=== PATIENT | female | born 1960 | race Caucasian/White ===

== ENCOUNTER → 2017-06-30 | Outpatient (CLI) | payer OTHER ==
--- NOTE | 2017-06-30 13:34 | RADIOLOGY IMAGING REPORT ---
FACILITY: [facility] - [place] PATIENT NAME: Meme Bo : 1960 MR: [id number] V: [id number] EXAM DATE: ORDERING PHYSICIAN: ALLISON HERNDON TECHNOLOGIST: Location: [facility] Patient: Meme Bo : 1960 Visit/Account:[id number] Date of Sevice: 06/30/2017 Technique: FOOT 2 VIEW BILATERAL HISTORY: Bilateral foot pain Comparison studies: None FINDINGS: Left foot: There is no acute fracture. Noted is hallux valgus. Mild dorsal midfoot osteophytosis is present. There are also degenerative changes at the first MTP joint. Soft tissues are unremarkable . Right foot: There is no acute fracture. Noted is hallux valgus. Degenerative changes are noted at th e first MTP joint. Soft tissues are unremarkable. IMPRESSION: 1. Degenerative changes as described above. Report Dictated By: Luis Miguel Patino DO at 06/30/2017 1:26 PM Report E-Signed By: Luis Miguel Patino DO at 06/30/2017 1:31 PM WSN:[email or web address]
--- NOTE | 2017-06-30 13:41 | RADIOLOGY IMAGING REPORT ---
FACILITY: [facility] - [place] PATIENT NAME: Meme Bo : 1960 MR: [id number] V: [id number] EXAM DATE: ORDERING PHYSICIAN: ALLISON HERNDON TECHNOLOGIST: Location: [facility] [place] Patient: Meme Bo : 1960 Visit/Account:[id number] Date of Sevice: 06/30/2017 Technique: KUB SINGLE VIEW ABDOMEN HISTORY: Abdominal discomfort, constipation Comparison studies: None FINDINGS: Surgical clips overlie the right upper left lower quadrants. No evidence of organomegaly. Moderate stool volume is seen throughout the colon. IMPRESSION: 1. Moderate stool volume throughout the colon. Report Dictated By: Luis Miguel Patino DO at 06/30/2017 1:34 PM Report E-Signed By: Luis Miguel Patino DO at 06/30/2017 1:35 PM WSN:[email or web address]
== END ==
LOC: RAD 12:29
PROVIDERS: ATTEND Family Medicine
DX: M19.072 Primary osteoarthritis, left ankle and foot (principal); M19.071 Primary osteoarthritis, right ankle and foot; M20.12 Hallux valgus (acquired), left foot; M20.11 Hallux valgus (acquired), right foot
CPT/HCPCS: 74018

== ENCOUNTER → 2017-07-24 | Day surgery (SDC) | payer OTHER ==
[~2017-07-24] VITALS: Ht 162.6 cm; Wt 78.9 kg
[~2017-07-24] MED LIST: ESTR-33 PO; LEVO-85 PO; LIDOCAINE MPF 1% 5 ML VIAL ONE; LIDOCAINE/SOD BICARB 8.4% SYR ID ONE; METR-1 PO; NORMOSOL R SOLN(*) 1000 ML BAG 1,000 ML IV PRN; PROPOFOL EMUL(*) 10MG/ML 20 ML 60 ML ONE
--- NOTE | 2017-07-24 07:27 | Short(Outpt) Discharge Summary ---
Discharge Summary Reason for Hosp/Final Diag: (1) Change in bowel habits Hospital Course & Plan: diverticulitis at 20 cm and diverticulosis Departure Discharge to: Home Discharge Instructions Home Meds Active Scripts Levofloxacin 500 Mg Tab (LEVAQUIN 500 MG TAB) 500 Mg Tablet, 500 MG PO QDAY, # 10 TAB Prov:APPLE DE LEON MD 07/24/17 Metronidazole (FLAGYL) 500 Mg Tablet, 500 MG PO TID, #30 TAB Prov:APPLE DE LENO MD 07/24/17 Reported Medications Estradiol (ESTRADIOL) 1 Mg Tablet, 1 MG PO DAILY 07/17/17 Diet: Regular Activity: As Tolerated Special Instructions: low residue diet for a week to see me in 2 weeks, call [phone] for apt APPLE DE LEON MD July 24, 2017 07:27
--- NOTE | 2017-07-24 07:27 | Post Operative Progress Note ---
Post Operative Progress Note Date: July 24, 2017 Time: 09:29 Surgeon: zeyad Anesthesia: dr landis Pre-Op Diagnosis: change in bowel habits Post-Op Diagnosis: diverticulitis at 20 cm and sigmoid divertiulosis Procedure(s): colonoscopy and biopsy APPLE DE LEON MD July 24, 2017 07:27
[2017-07-24 08:00] VITALS: BP 119/85
[2017-07-24 09:29] VITALS: BP 86/54
[2017-07-24 09:52] VITALS: BP 107/63
[2017-07-24 10:04] VITALS: BP 104/67
[2017-07-24 10:08] VITALS: BP 106/85
[2017-07-24 10:09] VITALS: BP 113/74
--- NOTE | 2017-07-24 14:48 | OPERATIVE REPORT 1 ---
EVENT DATE: July 24, 2017 SURGEON: Jasper Hanna MD ANESTHESIOLOGIST: Giorgi Mccracken MD ANESTHESIA: Sedation. PREOPERATIVE DIAGNOSIS Change in bowel habits, constipation. POSTOPERATIVE DIAGNOSES 1. Diverticulitis at 20 cm. 2. Sigmoid diverticulosis. PROCEDURE PERFORMED Colonoscopy with biopsies. DESCRIPTION OF PROCEDURE Patient was placed in the left lateral decubitus position and given intravenous sedation. Rectal exam was unremarkable. Flexible colonoscope was inserted. At 20 cm, she had an area that was stiff. I had difficulty to get the scope to go by, and there was reddened mucosa. With much persistence, we were able to slide by this area. We were then able to get over to the cecum. She had some solid material in the base of the cecum, made perfect visualization of that impossible, but we got a good view of the cecum, and it appeared to be normal. The right colon was normal. Transverse and descending colon were normal. She had diverticula in the sigmoid colon. At 20 cm, she had that tight area. We withdrew slowly across this. We took multiple biopsies from this area. I did not see any mucosal breakdown, nothing to suggest a tumor. It suggested more of diverticulitis, but the biopsies were taken. The rectum was normal. Scope was retroflexed. That appeared to be normal. [facility]
== END ==
LOC: OR 00:52
PROVIDERS: ATTEND Surgery
DX: K57.32 Diverticulitis of large intestine without perforation or abscess without bleeding (principal); K57.30 Diverticulosis of large intestine without perforation or abscess without bleeding
CPT/HCPCS: 00811; 45380; 88305; J2001; J2704

== ENCOUNTER → 2017-09-04 | Outpatient (CLI) | payer OTHER ==
[~2017-09-04] MED LIST changes: +FLUC200T56 PO; +IOPAMIDOL 76% 100 ML INFUS BTL 100 ML ONE; -LIDOCAINE MPF 1% 5 ML VIAL ONE; -LIDOCAINE/SOD BICARB 8.4% SYR ID ONE; +METR-160 PO; -NORMOSOL R SOLN(*) 1000 ML BAG 1,000 ML IV PRN; -PROPOFOL EMUL(*) 10MG/ML 20 ML 60 ML ONE; +SULF-198 PO
--- NOTE | 2017-09-04 09:48 | RADIOLOGY IMAGING REPORT ---
FACILITY: [facility] - [place] PATIENT NAME: Meme Bo : 1960 MR: [id number] V: [id number] EXAM DATE: ORDERING PHYSICIAN: SG THOMSON TECHNOLOGIST: Location: [facility] Patient: Meme Bo : 1960 Visit/Account:[id number] Date of Sevice: 09/04/2017 ABDOMEN/PELVIS W/WO CONTRAST Indication: Constipation Comparison: CT abdomen and pelvis 07/26/2013. Technique: CT lung bases to the pubic symphysis were obtained without and with IV contrast. 75 cc of Isovue 370 was used. One of the following dose optimization techniques was utilized in the performance of this exam: autom ated exposure control; adjustment of the mA and/or kV according to the patient's size; or use of an i terative reconstruction technique. Specific details can be referenced in the facility's radiology CT exam operational policy. Findings: Liver/gallbladder: Liver is normal. There are postoperative changes from a cholecystectomy. Spleen: Normal. Adrenals: Normal. Pancreas: Normal enhancement without evidence of mass. Kidneys/: Right and left kidney demonstrate normal enhancement without evidence of hydronephrosis or mass. Pelvic : Urinary bladder is normal. There are changes from a prior hysterectomy. GI: Diverticular changes are seen on the sigmoid colon, with adjacent fat stranding and wall thicken ing. There is no evidence of perforation or abscess. Vessels/spaces/nodes: Negative. Bones/soft tissues: There are no lytic or blastic bone lesions. Soft tissues are normal. Lung bases: Small nodules left lung base is seen. Largest measures 6 mm. Impression: 1. Acute sigmoid diverticulitis. No evidence of perforation or abscess. 2. Postoperative changes from a hysterectomy and cholecystectomy. 3. Several small nodules left lung base, largest measures 6 mm. If patient is high risk, such as hi story of smoking, CT chest without contrast is recommended. If patient is low risk, no follow-up is recommended. Report Dictated By: Ernesto Alejo at 09/04/2017 9:38 AM Report E-Signed By: Ernesto Alejo at 09/04/2017 9:44 AM WSN:[email or web address]
== END ==
LOC: CT 09-01 02:23
PROVIDERS: ATTEND Surgery
DX: Z90.49 Acquired absence of other specified parts of digestive tract (principal); Z90.79 Acquired absence of other genital organ(s); K57.30 Diverticulosis of large intestine without perforation or abscess without bleeding; R91.8 Other nonspecific abnormal finding of lung field
CPT/HCPCS: 74178; Q9967

== ENCOUNTER → 2017-10-03 | Outpatient (CLI) | payer OTHER ==
[~2017-10-03] MED LIST changes: +BARIUM SULFATE 1,900 ML ORAL.SUSP ONE; -IOPAMIDOL 76% 100 ML INFUS BTL 100 ML ONE
--- NOTE | 2017-10-03 14:41 | RADIOLOGY IMAGING REPORT ---
FACILITY: [facility] PATIENT NAME: Meme Bo : 1960 MR: [id number] V: [id number] EXAM DATE: ORDERING PHYSICIAN: SG THOMSON TECHNOLOGIST: Location: [facility] [place] Patient: Meme Bo : 1960 Visit/Account:[id number] Date of Sevice: 10/03/2017 Exam type: BARIUM ENEMA (BE) History: Diverticulitis Comparison: CT abdomen and pelvis September 04, 2017. Findings: Barium was instilled into the colon via the rectum in the usual retrograde fashion. Diverticulosis i s seen throughout the left-sided colon from the splenic flexure to the sigmoid colon and is most prom inent in the sigmoid region. Is a focal narrowing seen in the mid sigmoid colon upon initial filling of this area was again noted to be narrowed at the end of the examination. This could represent a f ocal area spasm due to the history of diverticulitis however an annular lesion cannot be entirely exc luded. Barium refluxed freely into the ileum. No intraluminal filling defects were identified. The fluoroscopy dose area product was 1905.21 micro-Styles per meter squared IMPRESSION: 1. Diverticulosis left-sided colon. There was a focal narrowing in the mid sigmoid colon seen upon initial filling with barium. This are a remains narrowed at the end of the examination. This could represent an area of spasm given the cl inical history of diverticulitis however an annular lesion cannot be entirely excluded. Report Dictated By: Georgina Morris MD at 10/03/2017 2:31 PM Report E-Signed By: Georgina Morris MD at 10/03/2017 2:36 PM WSN:[email or web address]
== END ==
LOC: RAD 09-30 00:48
PROVIDERS: ATTEND Surgery
DX: K57.32 Diverticulitis of large intestine without perforation or abscess without bleeding (principal)
CPT/HCPCS: 74270

== ENCOUNTER 2017-12-18 01:26 | Inpatient (IN) | payer OTHER ==
[2017-12-18] VITALS (7 sets, daily range): BP systolic 108–139; BP diastolic 63–93
[~2017-12-18] VITALS: Ht 162.6 cm; Wt 79.8 kg
[~2017-12-18 01:26] MED LIST changes: -BARIUM SULFATE 1,900 ML ORAL.SUSP ONE
[2017-12-18 09:22] LABS: PLATELET COUNT, AUTOMATED 334 K/uL (150-450)
[2017-12-18] MEDS ORDERED: LIDOCAINE/SOD BICARB 8.4% SYR ID ONE (09:50)
[2017-12-18] MEDS ORDERED: FAMOTIDINE 20 MG TAB PO ONE (09:50)
[2017-12-18] MEDS ORDERED: PREGABALIN 150 MG CAPSULE PO ONE (09:50)
[2017-12-18] MEDS ORDERED: ACETAMINOPHEN 500 MG TAB PO ONE (09:50)
[2017-12-18] MEDS ORDERED: LEVOFLOXACIN/D5W*500 MG/100 ML 100 ML IVPB ONE (09:50)
[2017-12-18] MEDS ORDERED: NORMOSOL R SOLN(*) 1000 ML BAG 1,000 ML IV PRN (09:50)
[2017-12-18] MEDS ORDERED: MIDAZOLAM 2 MG/2 ML VIAL IVP PRN (09:50)
[2017-12-18] MEDS ORDERED: metroNIDAZOLE* 500MG/100ML BAG 100 ML IVPB ONE ×2 (09:50→20:00)
[2017-12-18] MEDS ORDERED: fentaNYL CITR 250 MCG/5 ML AMP ONE (10:22)
[2017-12-18] MEDS ORDERED: DEXAMETHASONE SOD PHOS 10MG/ML ONE ×2 (10:24→13:00)
[2017-12-18] MEDS ORDERED: ONDANSETRON 4 MG/2 ML VIAL ONE ×2 (10:24→13:00)
[2017-12-18] MEDS ORDERED: LIDOCAINE MPF 1% 5 ML VIAL ONE (10:24)
[2017-12-18] MEDS ORDERED: KETAMINE HCL 200 MG/20 ML MDV ONE ×2 (10:26→14:45)
[2017-12-18] MEDS ORDERED: diphenhydrAMINE 50 MG/ML VIAL ONE (10:27)
[2017-12-18] MEDS ORDERED: ROCURONIUM BROM 10 MG/ML 10 ML ONE ×2 (11:02→13:00)
--- NOTE | 2017-12-18 11:04 | EKG ---
FACILITY: [facility] PATIENT NAME: KENYA STEPHENS : [id number] MR: [id number] V: [id number] EXAM DATE: ORDERING PHYSICIAN: JABIER ZIEGLER TECHNOLOGIST: Test Reason : Pre-op Blood Pressure : / mmHG Vent. Rate : 063 BPM Atrial Rate : 063 BPM P-R Int : 130 ms QRS Dur : 074 ms QT Int : 444 ms P-R-T Axes : 052 -14 024 degrees QTc Int : 454 ms Normal sinus rhythm with sinus arrhythmia Septal infarct , age undetermined Abnormal ECG No previous ECGs available Confirmed by Vince Jonas ([id number]) on 12/18/2017 7:18:49 PM Referred By: Confirmed By:Vince Lara
[2017-12-18] MEDS ORDERED: PROPOFOL EMUL(*) 10MG/ML 20 ML 20 ML ONE (11:48)
[2017-12-18] MEDS ORDERED: ROPIVACAINE 0.5% 20 ML VIAL ONE ×2 (12:28→19:54)
[2017-12-18] MEDS ORDERED: INDOCYANINE GREEN 25 MG VIAL IVP ONE (12:28)
[2017-12-18] MEDS ORDERED: SUGAMMADEX SOD 200 MG/2 ML SDV ONE ×2 (13:20→19:43)
[2017-12-18] MEDS ORDERED: HYDROmorphone HCL 2 MG/ML SDV ONE (14:29)
[2017-12-18] MEDS ORDERED: NS 0.9% 20 ML SDV 40 ML ONE (16:56)
[2017-12-18] MEDS ORDERED: fentaNYL CITR 100 MCG/2 ML AMP ONE ×3 (18:20→21:10)
[2017-12-18] MEDS ORDERED: ACETAMINOPHEN(*)1000 MG/100 ML 100 ML IVPB ONE (19:56)
[2017-12-18] MEDS ORDERED: FLUSH 10 ML SYR IVP PRN (20:45)
[2017-12-18] MEDS ORDERED: HYDROmorphone PCA 6 MG/30 ML IV PRN (20:45)
[2017-12-18] MEDS ORDERED: ONDANSETRON 4 MG/2 ML VIAL IVP PRN (20:45)
[2017-12-18] MEDS ORDERED: NALOXONE HCL 0.4 MG/ML VIAL IVP PRN (20:45)
--- NOTE | 2017-12-18 21:06 | Post Operative Progress Note ---
Post Operative Progress Note Date: Dec 18, 2017 Time: 20:49 Surgeon: Lisa Dictation number: [id number] Anesthesia: GETA by Dr. Fragoso Pre-Op Diagnosis: Sigmoid diverticulitis with stricture Post-Op Diagnosis: PHYLLIS Findings: C/W dx Procedure(s): Robotic sigmoid colectomy Robotic mobilization of splenic flexure Laparoscopic colorectal anastomosis Specimen Removed:(May be N/A): Sigmoid colon Anastomotic donuts Complications: None Fluids: 3500mL crystalloid 350mL UOP Estimated Blood Loss: 200mL Date OP Note Dictated: Dec 18, 2017 Time OP Note Dictated: 20:51 SG THOMSON MD Dec 18, 2017 21:06
[2017-12-18] MEDS ORDERED: CYAN500T38 PO (21:49)
[2017-12-18] MEDS: NS(*) 0.9% 1000 ML BAG 1,000 ML IV PRN (22:10)
--- NOTE | 2017-12-18 22:25 | OPERATIVE REPORT 1 ---
EVENT DATE: December 18, 2017 SURGEON: Adiel Gonzalez MD ANESTHESIOLOGIST: Guanaco Fragoso MD ANESTHESIA: General endotracheal anesthesia. PREOPERATIVE DIAGNOSIS Chronic sigmoid diverticulitis with stricture. POSTOPERATIVE DIAGNOSIS Chronic sigmoid diverticulitis with stricture. PROCEDURES PERFORMED 1. Robotic sigmoid colectomy. 2. Robotic mobilization of splenic flexure. 3. Laparoscopic colorectal anastomosis. COMPLICATIONS None. CONDITION Stable. BLOOD LOSS 200 mL URINE OUTPUT 350 mL INTRAVENOUS FLUIDS Crystalloid 3.5 L. SPECIMENS 1. Sigmoid colon. 2. Anastomotic donut. FINDINGS This patient had a very thickened portion of her sigmoid colon where the stricture was located. This was localized to the mid sigmoid, and I could find nice, healthy, soft colon that was normal proximally to this with a nice, healthy rectum distal to it. INDICATIONS This is a 57-year-old female who has been experiencing chronic recurring sigmoid diverticulitis and ultimately ended up with stricture in the mid sigmoid causing her to have problems with defecation. Dr. Hanna had performed a colonoscopy on her several months ago and noted the stricture, although he was able to pass the scope proximally to the stricture. He has since moved out of the area and referred her to me for further treatment regarding her stricture. We discussed colonoscopy with dilation versus no treatment versus sigmoid colectomy, and I explained the risks and benefits of each. After this discussion, she elected to proceed with sigmoid colectomy. DESCRIPTION OF PROCEDURE The patient was brought to the operating room and placed supine on the operating table. General endotracheal anesthesia was administered, and [facility] and [facility] Norman catheter was inserted. Her arms were tucked, and all pressure points were padded and protected. Her abdomen was prepped and draped in a sterile fashion. Timeout was completed, and then I injected the right subcostal skin with 0.5% ropivacaine plain. I made a 5 mm incision in this area, actually right through a previous scar from a previous port from a previous operation, and I used a Veress needle through this incision and entered the peritoneal cavity with no problems. I insufflated her abdomen to a pressure of 15 mmHg and then used a 5 mm optical trocar with the camera. I then focused and inserted this into the patient's abdomen without any problems. Gross inspection of the abdominal cavity revealed some adhesions down near her pelvis from her previous hysterectomy and cesareans. No other obvious pathology was noted. I then placed an 8 mm robotic port in the epigastric midline, an 8 mm port in the right mid abdomen, an 8 mm port a little bit lower in the right mid abdomen, and then a 12 mm robotic port in the right lower quadrant just medial to the anterior superior iliac spine. These were all placed in a line that was perpendicular to a line aimed at the sigmoid colon. After these were in place, the patient was placed in steep Trendelenburg, and the robot was brought in, docked, and targeted. Instruments were inserted. After this was completed, I scrubbed out and went to the console, and I mobilized the sigmoid colon from lateral to medial. There were some dense adhesions of the lateral sigmoid colon to the lateral pelvic sidewall. Through a combination of medial and lateral dissection, I was able to mobilize these and ultimately dissect it all the way down around the peritoneal reflection and then up along the lateral attachments of the descending colon and dividing the white line of Toldt. I did a combination of a medial to lateral and lateral to medial dissection to connect the dots behind the mesocolon. The left ureter was easily identified and preserved and could easily be seen peristalsing. Once I got behind the mesentery of the sigmoid colon, I dissected down to the rectum. Once I identified the upper rectum just beyond the peritoneal reflection, I cleaned this off circumferentially. Using the Endo LIZBETH stapler with a green load, I divided the rectum at this level. I then scrubbed back in and went to the patient. I anesthetized the skin and made a low transverse incision in a previous scar from her previous hysterectomy and . I dissected through the dermis and subcutaneous fat, identified the anterior fascia, and made a transverse incision in this. I then swept the muscles laterally without dividing them and then entered the peritoneal cavity. I placed a wound protector and then pulled the colon out through this. It was kind of tight, but I was able to divide the mesentery proximal to the obviously thickened area where the stricture was located. I then used a LIZBETH 75 mm stapler with a blue load and divided the colon at this point. I then dropped the divided colon back into the patient's abdomen and removed the specimen off the field. We then brought the robot in and redocked it, targeted it, and inserted the instruments. Before I went to the console, I opened up the specimen on the back table and noted the stricture and a very thickened area of colon around this from the chronic inflammation. I did not see any other abnormalities or evidence of cancer. The specimen was passed off the field, and I went to the console. I placed a staple line down by the pelvis, but it was way too short today and several centimeters away from the rectal stump to safely perform an anastomosis. I then continued dividing the mesocolon proximally and divided the BETITO with a vascular load, but I did not need to divide the IMV. I connected the medial to lateral dissection with the lateral to medial and the greater omentum from the transverse colon all the way from the mid transverse colon all the way to the splenic flexure and divided all of the surrounding attachment to the splenic flexure to the spleen and abdominal wall. Ultimately after this was done, I had great mobilization of the colon. I brought the staple line in, and it went right down into the pelvis right up against the rectal stump with no tension, and there was excess colon to spare. I scrubbed back in and went back to the low transverse incision. I pulled this colon out and cut off the staple line. I then used the EEA sizer and tried a 25 mm sizer which passed with no problems, a 29 mm sizer passed with no problems, and a 33 mm sizer would not pass without tearing the tissue. I then elected to use a 25 mm EEA stapler, and this was brought up onto the field. The anvil was removed from the stapler and placed in the colon. I used a 2-0 silk suture to make a pursestring around this colon to secure the EEA stapler in place. I then dropped the colon with the EEA stapler back into the patient's abdomen and sealed the incisions. I then used the sizer up into the rectum to identify the staple line and that it would pass up to the rectal stump without no problems, and it did. I then inserted the main portion of the EEA stapler up into the patient's rectum and engaged it at the staple line. I advanced the trocar until I could see the orange. I then used the laparoscopic anvil clamp, grasped the anvil, then engaged the trocar, and locked it into place. I then went back between the patient's legs and then pulled the anvil into the stapler until the stapler indicated the red line was in the green zone. I then fired the stapler, then opened the anvil a full turn, and then gently removed the stapler from the patient's rectum. I checked both donuts, and they both were complete. The rectal portion of the donut was very robust. Up the colonic portion was somewhat smaller, but still complete. I then stuck a proctoscope into the patient's rectum, and I visualized the staple line. It was complete all the way around, and there was no active bleeding, although there was a little bit of blood in this area. I then had my activity assistant fill the patient's pelvis with normal saline with the camera down there, and then I filled the rectum with gas through the proctoscope, and there was no bubbling. I then released the gas by opening up the proctoscope and removed the proctoscope from the patient's rectum. We then brought the robot back in, redocked it, targeted it, and inserted the instruments. I then went back to the console. We used an ICG injection again, which we had done actually after mobilizing the splenic flexure, but prior to putting the anvil in to confirm good blood flow all the way to the staple line, and there was. Now with the anastomosis, we did another dose of ICG, and the entire small bowel and colon all the way down to the anastomosis glowed, as well as the rectal stump. I suctioned out the pelvis and looked around the abdomen for any other abnormalities or problems, and there were none. We then removed all the robotic instruments and undocked the robot. I scrubbed in, went back to the bedside. I used a Leo-Grant suture passer, and after removing the 12 mm port, I placed a [id number] 0 Vicryl suture through the fascia of the right lower quadrant 12 mm port incision. I tied this down, and this was airtight at this point. We then desufflated the abdomen, removed all of the ports, removed the wound protector, and then closed the peritoneum in the low transverse wound with a running 3-0 Vicryl suture and then closed the anterior fascia with running #2 Prolene suture. We irrigated and dried this wound. I closed the subcutaneous tissue with running 3-0 Vicryl suture, and the skin was closed with interrupted 3-0 Vicryl deep dermal sutures and 4-0 Monocryl running subcuticular suture. Each of the port sites were closed with 4-0 Monocryl subcuticular sutures. The skin was cleaned and dried, and Steri-Strips were applied, followed by sterile surgical dressings. The patient was awakened, extubated in the operating room, and transported to the recovery room in stable condition having tolerated the procedure without any apparent problems. MATTI
[2017-12-19] VITALS (9 sets, daily range): BP systolic 92–110; BP diastolic 54–68; Ht 162.6 cm; Wt 79.8 kg
[2017-12-19] MEDS: ACETAMINOPHEN(*)1000 MG/100 ML 100 ML IVPB SCH ×4 (01:20→20:36)
[2017-12-19] MEDS: metroNIDAZOLE* 500MG/100ML BAG 100 ML IVPB SCH ×3 (03:39→19:35)
[2017-12-19 06:00] LABS: PLATELET COUNT, AUTOMATED 285 K/uL (150-450)
[2017-12-19] MEDS: NS(*) 0.9% 1000 ML BAG 1,000 ML IV PRN ×2 (06:59→17:59)
--- NOTE | 2017-12-19 07:36 | General Surgery Progress Note ---
Subjective Progress Notes Subjective No complaints this morning. Not much pain. No appetite. No nausea or bloating. No flatus yet. Physical Exam Vital Signs Date Time Temp Pulse Resp B/P (MAP) Pulse Ox O2 Delivery O2 Flow Rate FiO2 12/19/17 05:46 12 97 12/19/17 04:00 62 92/55 (67) Nasal Cannula 2.0 12/19/17 00:00 97.8 Intake and Output 12/19/17 07:00 Intake Total 3850 ml Output Total 1100 ml Balance 2750 ml Intake IV Total 3850 ml Output Urine Total 1100 ml General Appearance: Alert, Awake, No Acute Distress, Afebrile GI: Other (Soft, appropriate postop TTP, dressings C/D/I) Extremities: Warm, Perfused Result Diagram: 12/19/1752112/19/17521 Assessment and Plan Problems: (1) S/P colectomy Status: Acute Assessment & Plan: 12/19/17: POD#1 s/p robotic sigmoid colectomy. Doing well. Pain well controlled. Awaiting return of bowel function. Will start sips/chi ps, chewing gum, hard candy, popsickle diet today. Ambulate, IS, aggressive pulmonary hygiene. PT to work with her today to help her mobilize, transfer, etc. Remove Norman later today or tomorrow morning depending on mobility today. Stop levaquin and flagyl tomorrow. PPI for GI prophylaxis. Lovenox for VTE prophylaxis. Condition Stable. Time Spent: < 30 min Exam Sepsis Risk: No Definite Risk SG THOMSON MD Dec 19, 2017 07:36
[2017-12-19] MEDS: PANTOPRAZOLE SOD 40 MG IV VIAL IVP SCH (08:52)
[2017-12-19] MEDS ORDERED: LEVOFLOXACIN/D5W*500 MG/100 ML 100 ML IVPB SCH (13:00)
--- NOTE | 2017-12-19 16:43 | Antimicrobial Stewardship ---
Antimicrobial Stewardship Empiricly appropriate: Yes Comment Levofloxacin 500mg IV daily, Flagyl 500mg IV Q8H Appropriate dose for site: Yes Clinically stable/improving: Yes Comment S/P colectomy- post op prophylaxis IV to PO Opportunity: No Comment Pt still NPO, awaiting return of bowel function, will d/c antibiotics tomorrow Determine cumulative duration: Appropriate post op prophylaxis Comment 12/18/17: Pt s/p colectomy, on appropriate antibiotics for prophylaxis. Plan to stop antibiotics on 12/20/17. Analy Andres, PharmD, BCOP ANALY ANDRES Dec 19, 2017 16:43
[2017-12-19] MEDS: MELATONIN 3 MG TAB PO SCH (20:36)
[2017-12-20] MEDS: ACETAMINOPHEN(*)1000 MG/100 ML 100 ML IVPB SCH ×4 (02:42→19:31)
[2017-12-20 03:42] VITALS: BP 105/66
[2017-12-20] MEDS: metroNIDAZOLE* 500MG/100ML BAG 100 ML IVPB SCH (04:20)
[2017-12-20] MEDS: NS(*) 0.9% 1000 ML BAG 1,000 ML IV PRN (04:20)
[2017-12-20 05:27] VITALS: BP 201/85
[2017-12-20 06:44] LABS: PLATELET COUNT, AUTOMATED 255 K/uL (150-450)
[2017-12-20 07:43] VITALS: BP 122/72
[2017-12-20] MEDS: PANTOPRAZOLE SOD 40 MG IV VIAL IVP SCH (08:59)
[2017-12-20] MEDS: ENOXAPARIN 40 MG/0.4ML SYR SC SCH (09:00)
--- NOTE | 2017-12-20 09:28 | General Surgery Progress Note ---
Subjective Progress Notes Subjective Having a little more abdominal cramping this morning. Feels like the dilaudid is affecting her mind. Passing flatus. Passed a little blood per rectum this morning. Physical Exam Vital Signs Date Time Temp Pulse Resp B/P (MAP) Pulse Ox O2 Delivery O2 Flow Rate FiO2 12/20/17 07:43 98.3 74 18 122/72 (89) 90 Room Air 12/20/17 03:42 1.0 Intake and Output 12/20/17 07:00 Intake Total 2729 ml Output Total 1750 ml Balance 979 ml Intake Oral 0 ml IV Total 2729 ml Output Urine Total 1750 ml General Appearance: Alert, Awake, No Acute Distress, Afebrile GI: Other (Soft, appropriate postop TTP, incisions all look good without erythema or drainage.) Extremities: Warm, Perfused Result Diagram: 12/20/1752312/20/17523 Assessment and Plan Problems: (1) S/P colectomy Status: Acute Assessment & Plan: 12/19/17: POD#1 s/p robotic sigmoid colectomy. Doing well. Pain well controlled. Awaiting return of bowel function. Will start sips/chips, chewing gum, hard candy, popsickle diet today. Ambulate, IS, aggressive pulmonary hygiene. PT to work with her today to help her mobilize, transfer, etc. Remove Norman later today or tomorrow morning depending on mobility today. Stop levaquin and flagyl tomorrow. PPI for GI prophylaxis. Lovenox for VTE prophylaxis. 12/20/17: POD#2. Doing well. Passing flatus so will start clear diet but pt advised to go slow until cramps and appetite improves. Dressings removed. Pt may shower today. Ambulate, IS, aggressive pulmonary hygiene. Norman removed this morning. Will stop perioperative abx. PPI, lovenox for prophylaxis. Will start toradol to improve pain control. Condition Stable Time Spent: < 30 min Exam Sepsis Risk: No Definite Risk SG THOMSON MD Dec 20, 2017 09:28
[2017-12-20] MEDS: KCL/D1/2NS 20 MEQ 1000 ML 1,000 ML IV SCH (12:10)
[2017-12-20] MEDS: KETOROLAC 30 MG/ML VIAL IVP SCH ×3 (12:10→21:43)
[2017-12-20 12:15] VITALS: BP 125/81
[2017-12-20 13:56] VITALS: BP 104/72
[2017-12-20 19:30] VITALS: BP 102/72
[2017-12-20] MEDS: MELATONIN 3 MG TAB PO SCH (21:43)
[2017-12-21] MEDS: KCL/D1/2NS 20 MEQ 1000 ML 1,000 ML IV SCH (01:24)
[2017-12-21] MEDS: ACETAMINOPHEN(*)1000 MG/100 ML 100 ML IVPB SCH ×2 (01:24→09:11)
[2017-12-21 01:40] VITALS: BP 114/71
[2017-12-21] MEDS: KETOROLAC 30 MG/ML VIAL IVP SCH (03:28)
[2017-12-21 03:30] VITALS: BP 115/73
[2017-12-21 06:50] LABS: PLATELET COUNT, AUTOMATED 257 K/uL (150-450)
[2017-12-21 07:30] VITALS: BP 123/76
[2017-12-21] MEDS: PANTOPRAZOLE SOD 40 MG IV VIAL IVP SCH (09:11)
[2017-12-21] MEDS: ENOXAPARIN 40 MG/0.4ML SYR SC SCH (09:12)
[2017-12-21] MEDS ORDERED: KCL/D1/2NS 20 MEQ 1000 ML 1,000 ML IV SCH (09:23)
[2017-12-21] MEDS ORDERED: MORPHINE 2 MG/ML SYR IVP PRN (09:25)
[2017-12-21] MEDS ORDERED: ACETAMINOPHEN 325 MG TAB PO PRN (09:25)
--- NOTE | 2017-12-21 09:31 | General Surgery Progress Note ---
Subjective Progress Notes Subjective No complaints this morning. Passing lots of flatus. No BM yet. Abdominal discomfort she was having yesterday has resolved. Physical Exam Vital Signs Date Time Temp Pulse Resp B/P (MAP) Pulse Ox O2 Delivery O2 Flow Rate FiO2 12/21/17 07:57 95 Room Air 12/21/17 07:30 98.2 65 18 123/76 (92) 12/21/17 03:30 1.0 Intake and Output 12/21/17 06:59 Intake Total 1550 ml Output Total 150 ml Balance 1400 ml Intake Oral 550 ml IV Total 1000 ml Output Urine Total 150 ml # Voids 6 General Appearance: Alert, Awake, No Acute Distress, Afebrile GI: Soft and Non-Tender (Incisions are all healing well without erythema or drainage.) Extremities: Warm, Perfused Result Diagram: 12/21/1754712/21/17547 Assessment and Plan Problems: (1) S/P colectomy Status: Acute Assessment & Plan: 12/19/17: POD#1 s/p robotic sigmoid colectomy. Doing well. Pain well controlled. Awaiting return of bowel function. Will start sips/chips, chewing gum, hard candy, popsickle diet today. Ambulate, IS, aggressive pulmonary hygiene. PT to work with her today to help her mobilize, transfer, etc. Remove Norman later today or tomorrow morning depending on mobi lity today. Stop levaquin and flagyl tomorrow. PPI for GI prophylaxis. Lovenox for VTE prophylaxis. 12/20/17: POD#2. Doing well. Passing flatus so will start clear diet but pt advised to go slow until cramps and appetite improves. Dressings removed. Pt may shower today. Ambulate, IS, aggressive pulmonary hygiene. Norman removed this morning. Will stop perioperative abx. PPI, lovenox for prophylaxis. Will start toradol to improve pain control. 12/21/17: POD#3. Doing very good this morning. Passing increasing amounts of flatus. No N/V or bloating, tolerating clear diet. Will try regular diet and start converting medications to PO later today. Urinating without problems sinc e catheter removed. Possible d/c to home tomorrow if doing well and tolerating regular diet. Condition Stable. Time Spent: < 30 min Exam Sepsis Risk: No Definite Risk SG THOMSON MD Dec 21, 2017 09:31
[2017-12-21] MEDS: IBUPROFEN 600 MG TAB PO PRN (10:54)
[2017-12-21] MEDS: APAP/HYDROCODONE 325/5 TAB PO PRN ×2 (12:59→19:43)
[2017-12-21 20:40] VITALS: BP 110/86
[2017-12-21] MEDS: MELATONIN 3 MG TAB PO SCH (21:07)
[2017-12-22] MEDS: APAP/HYDROCODONE 325/5 TAB PO PRN ×2 (00:02→10:33)
[2017-12-22 00:05] VITALS: BP 118/74
[2017-12-22 07:16] VITALS: BP 127/84
[2017-12-22] MEDS ORDERED: IBUP600T22 PO (08:16)
[2017-12-22] MEDS ORDERED: LOR5/325 PO (08:16)
--- NOTE | 2017-12-22 08:23 | Short(Outpt) Discharge Summary ---
Discharge Summary Reason for Hosp/Final Diag: (1) S/P colectomy Status: Acute Hospital Course & Plan: 12/19/17: POD#1 s/p robotic sigmoid colectomy. Doing well. Pain well controlled. Awaiting return of bowel function. Will start sips/chips, chewing gum, hard candy, popsickle diet today. Ambulate, IS, aggressive pulmonary hygiene. PT to work with her today to help her mobilize, transfer, etc. Remove Norman later today or tomorrow morning depending on mobility today. Stop levaquin and flagyl tomorrow. PPI for GI prophylaxis. Lovenox for VTE prophylaxis. 12/20/17: POD#2. Doing well. Passing flatus so will start clear diet but pt advised to go slow until cramps and appetite improves. Dressings removed. Pt may shower today. Ambulate, IS, aggressive pulmonary hygiene. Norman removed this morning. Will stop perioperative abx. PPI, lovenox for prophylaxis. Will start toradol to improve pain control. 12/21/17: POD#3. Doing very good this morning. Passing increasing amounts of flatus. No N/V or bloating, tolerating clear diet. Will try regular diet and start converting medications to PO later today. Urinating without problems since catheter removed. Possible d/c to home tomorrow if doing well and tolerating regular diet. 12/22/17: POD#4. Doing well. Tolerating diet. Continues to pass a lot of flatus. No BM yet. Pt wishes to go home. Will d/c to home and I will see her back in the office later this week. Departure Discharge to: Home, Self Care Discharge Instructions Home Meds Active Scripts Ibuprofen (IBUPROFEN) 600 Mg Tablet, 1 TAB PO TID PRN for PAIN, #30 TAB 0 Refills Prov:SG THOMSON MD 12/22/17 Hydrocodone Bit/Acetaminophen (HYDROCODON-ACETAMINOPHEN 5-325) 1 Each Tablet, 1 TAB PO Q4H PRN for PAIN, #20 TAB 0 Refills Prov:SG THOMSON MD 12/22/17 Reported Medications Cyanocobalamin (Vitamin B-12) (VITAMIN B-12) 500 Mcg Tablet, 500 MCG PO DAILY 12/18/17 Estradiol (ESTRADIOL) 1 Mg Tablet, 1 TAB PO DAILY 07/17/17 Follow up Referrals: General Surgery - 12/26/17 @ Surgery, General with SG THOMSON MD You have a follow up appointment scheduled with Dr. Thomson on 12/26/17, at 3:00pm. Diet: Regular Activity: As Tolerated Special Instructions: You may shower as desired but don't immerse the incisions for 2 weeks. Leave the steristrips in place until they fall off on their own. Avoid any activities that involves straining or lifting more than 10 pounds until you're 6 weeks after surgery to allow the lower abdominal ( type) incision to heal without a future hernia. Make sure you're drinking plenty of water and even protien drinks throughout the day to stay hydrated, monitor your urine output and make sure you're urinating throughout the day and that your urine is light yellow. Eat a low fiber diet for the next week and if you're having regular bowel movements you can start incorporating more fiber-rich foods starting next week (December 29) but don't take any fiber supplements (metamucil, citrucel, benefiber, etc) until you're 30 days out from surgery. Please call my office or come in to the ER for evaluation if you develop increasing abdominal pain, florid diarrhea, nausea, vomiting, you stop passing gas from your rectum, fevers, chills, or your abdomen becomes increasingly bloated/distended. I will see you this next Friday at 3:00pm!! Happy Halloween!! SG THOMSON MD Dec 22, 2017 08:23
[2017-12-22] MEDS: IBUPROFEN 600 MG TAB PO PRN (09:04)
[2017-12-22] MEDS: ENOXAPARIN 40 MG/0.4ML SYR SC SCH (09:04)
== END 2017-12-22 10:40 | disposition home or self-care (01) | DRG 330 ==
LOC: OR 01:26 → MED 21:42
PROVIDERS: ADMIT Surgery; ATTEND Surgery
PROC: 0D1 Gastrointestinal System, Bypass (ICD-10-PCS; 2017-12-18)
PROC: 8E0W4CZ Robotic Assisted Procedure of Trunk Region, Percutaneous Endoscopic Approach (ICD-10-PCS; 2017-12-18)
PROC: 0DBN0ZZ Excision of Sigmoid Colon, Open Approach (ICD-10-PCS; principal; 2017-12-18 12:59)
DX: K57.32 Diverticulitis of large intestine without perforation or abscess without bleeding (principal); K56.699 Other intestinal obstruction unspecified as to partial versus complete obstruction; R19.5 Other fecal abnormalities; Z88.0 Allergy status to penicillin
CPT/HCPCS: 36415; 82310; 82374; 82435; 82565; 82947; 84132; 84295; 84520; 85025; 86850; 86900; 86901; 88305; 88307; 93005; C9113; J0131; J1100; J1170; J1200; J1650; J1885; J1956; J2001; J2250; J2405; J2704; J2795; J3010; J3480; J3490; J7030; J7050

== ENCOUNTER → 2018-07-08 | Outpatient (CLI) | payer OTHER ==
[2017-12-19 08:15] VITALS: BMI 30.2
[~2018-07-08] MED LIST changes: +CYAN500T38 PO; +IBUP600T22 PO; +LOR5/325 PO; -METR-160 PO; +METR500T15 PO
--- NOTE | 2018-07-08 14:47 | RADIOLOGY IMAGING REPORT ---
FACILITY: [facility] PATIENT NAME: Meme Bo : 1960 MR: [id number] V: [id number] EXAM DATE: ORDERING PHYSICIAN: VERONICA HOU TECHNOLOGIST: Location: [facility] [place] Patient: Meme Bo : 1960 Visit/Account:[id number] Date of Sevice: 07/08/2018 CT SINUS W/O CON COMPARISONS: None ADDITIONAL PERTINENT HISTORY: Medical failure, sinus disease TECHNIQUE: Multiple axial images were obtained through the paranasal sinuses with coronal and sagitta l reformatted images. No IV contrast was administered. One of the following dose optimization techni ques was utilized in the performance of this exam: Automated exposure control; adjustment of the mA a nd/or kV according to the patient's size; or use of an iterative reconstruction technique. Specific details can be referenced in the facility's radiology CT exam operational policy. FINDINGS: Maxillary sinuses: Moderate lobular mucosal thickening involving both maxillary sinuses. Frontal sinuses: Negative. Ethmoid air cells: Negative. Sphenoid sinuses: Moderate sized mucus retention cyst involving the left sphenoid sinus.. Nasal septum: Negative. Drainage pathways: Patent Paranasal variance: None Medial orbital chamberlain, cribriform plate, and orbital floors: Negative. Visualized bony skull base Negative. Visualized intracranial contents: Negative. Orbits and surrounding soft tissues: Negative. IMPRESSION: 1. Underlying nonobstructive paranasal sinus disease. 2. No other significant abnormality noted. Report Dictated By: Piero Gerard MD at 07/08/2018 2:33 PM Report E-Signed By: Piero Gerard MD at 07/08/2018 2:43 PM WSN:[id number]
== END ==
LOC: CT 00:52
PROVIDERS: ATTEND Physician Assistant
DX: J32.9 Chronic sinusitis, unspecified (principal)
CPT/HCPCS: 70486

== ENCOUNTER → 2018-07-14 | Outpatient (CLI) | payer OTHER ==
[2017-12-19 08:15] VITALS: BMI 30.2
[~2018-07-14] MED LIST changes: +CEFPR500PT PO; +METH4TAB66 PO
== END ==
LOC: LAB 14:44
PROVIDERS: ATTEND Physician Assistant
DX: J30.81 Allergic rhinitis due to animal (cat) (dog) hair and dander (principal)
CPT/HCPCS: 36415; 86003

== ENCOUNTER → 2018-07-15 | Outpatient (CLI) | payer OTHER ==
[2017-12-19 08:15] VITALS: BMI 30.2
--- NOTE | 2018-07-16 09:05 | RADIOLOGY IMAGING REPORT ---
FACILITY: [facility] - [place] PATIENT NAME: KENYA STEPHENS : [id number] MR: [id number] V: [id number] EXAM DATE: [id number] ORDERING PHYSICIAN: ALLISON HERNDON TECHNOLOGIST: Cyndi Cevallos PROCEDURE: BILATERAL DIGITAL SCREENING MAMMOGRAM WITH CAD ASSISTED INTERPRETATION & 3D TOMOSYNTHESIS REASON FOR STUDY: Screening. FAMILY HISTORY OF BREAST CANCER: None. BREAST PROCEDURES/TREATMENTS: Bilateral breast augmentation silicone implants in 1982. COMPARISON: Prior mammograms 02/28/16, 01/07/14. VIEWS OBTAINED: 2D & 3D full field CC & MLO. BREAST DENSITY: There are scattered areas of fibroglandular density seen throughout the breasts. MAMMOGRAM FINDINGS: These mammo projections were performed as non-implant displacement views however the implants are not visible on these images. The patient states her implants do not feel any different to her than previously. Possible implant rupture cannot be entirely excluded. The differential diagnosis would include severe capsular contraction. The parenchymal pattern of the breasts has remained stable allowing for difference in mammographic technique & patient positioning. IMPRESSION: BIRADS 2: Benign finding. Please see above discussion concerning non-visibility of the patient's implants. DIAGNOSTIC CATEGORY 2--BENIGN FINDING. RECOMMENDATIONS: ROUTINE MAMMOGRAM AND CLINICAL EVALUATION. Dictated by: Georgina Morris M.D. on 07/15/2018 at 16:14 Transcribed by: MILAN on 07/16/2018 at 8:28 Approved by: Georgina Morris M.D. on 07/16/2018 at 9:04 [facility]
== END ==
LOC: MAMO 01:04
PROVIDERS: ATTEND Family Medicine
DX: Z12.31 Encounter for screening mammogram for malignant neoplasm of breast (principal)
CPT/HCPCS: 77063; 77067